=== PATIENT | female | born 1945 ===

== ENCOUNTER 2020-09-16 13:44 | Outpatient (REF) | payer MEDICAID, SELFPAY ==
[2020-09-16 14:43] LABS: C Reactive Protein 0.88 mg/dL (< or = 0.50)
[2020-09-16 16:04] LABS: Erythrocyte Sedimentation Rate 29 MM/HR (0-20)
== END 2020-09-16 13:45 | disposition home or self-care (01) ==
LOC: HO.LAB 13:44
PROVIDERS: PCP Internal Medicine; Visit Provider Psychiatry & Neurology Neurology
DX: G43.909 Migraine, unspecified, not intractable, without status migrainosus (principal)
CPT/HCPCS: 36415; 85652; 86140

== ENCOUNTER 2022-04-26 13:59 | Outpatient (REF) | payer MEDICAID, SELFPAY | END 2022-04-26 14:00 | disposition home or self-care (01) | LOC: HO.LAB 13:59 | PROVIDERS: PCP Internal Medicine; Visit Provider Nurse Practitioner Family | DX: N39.0 Urinary tract infection, site not specified (principal) | CPT/HCPCS: 51798; 87086; 87088; 87186; 99202 ==

== ENCOUNTER 2022-06-23 13:45 | Outpatient (REF) | payer MEDICAID, SELFPAY ==
--- NOTE | ~2022-06-23 | US_ITS ---
EXAMINATION: US RETROPERITONEAL LIMITED (RENAL ONLY) CLINICAL INFORMATION: Urinary tract infection, site not specified. COMPARISON: None available. TECHNIQUE: Real-time imaging of the kidneys. FINDINGS: RIGHT KIDNEY: 11.5 x 4.5 x 5.3 cm (SAG x AP x TRV). The kidney is normal in size, contour, and echogenicity. Renal cortical thickness is normal. No renal calculi or hydronephrosis. At the upper pole, a 1.0 cm in maximal diameter anechoic, simple cyst is seen. LEFT KIDNEY: 11.4 x 3.9 x 3.9 cm (SAG x AP x TRV). The kidney is normal in size, contour, and echogenicity. Renal cortical thickness is normal. No calculi or focal parenchymal lesions. No hydronephrosis. BLADDER: Partially distended. Bilateral ureteral jets are demonstrated. Prevoid bladder volume is 39 mL. Postvoid bladder volume is not obtained. US/US renal BI IMPRESSION: A 1.0 cm benign, simple right renal cyst is seen. This is a benign finding, for which no imaging follow-up is recommended. The examination is otherwise unremarkable.
== END 2022-06-23 13:46 | disposition home or self-care (01) ==
LOC: HO.US 13:45
PROVIDERS: PCP Internal Medicine; Visit Provider Nurse Practitioner Family
DX: N39.0 Urinary tract infection, site not specified (principal)
CPT/HCPCS: 76775

== ENCOUNTER 2022-07-14 12:56 | Outpatient (REF) | payer MEDICAID, SELFPAY ==
--- NOTE | ~2022-07-14 | US_ITS ---
EXAMINATION: US PELVIS LIMITED (BLADDER) CLINICAL INFORMATION: Recurrent UTI. COMPARISON: Ultrasound renal 06/23/2022. TECHNIQUE: Real-time imaging of the bladder. FINDINGS: BLADDER: Well distended and normal. Bilateral ureteral jets are demonstrated. Prevoid bladder volume is 227 mL. Postvoid bladder volume is 16.5 mL. US/US bladder IMPRESSION: Unremarkable sonographic appearance of the bladder.
== END 2022-07-14 12:57 | disposition home or self-care (01) ==
LOC: HO.US 12:56
PROVIDERS: PCP Internal Medicine; Visit Provider Nurse Practitioner Family
DX: N39.0 Urinary tract infection, site not specified (principal)
CPT/HCPCS: 76857

== ENCOUNTER 2022-12-01 13:03 | Outpatient (AMB) | payer MEDICAID, SELFPAY ==
--- NOTE | 2022-12-01 13:06 | MHC.OFFVIS ---
Intake Intake Visit Reasons: 2m/US/PVR(SET) Intake Note: Patient is present for follow up recurrent uti/ultrasound (imaging 06/23 & 07/14) Urology Medications: Estrace Cream Blood Thinner: Apixaban (eliquis) PVR: 73ml's Speech Language Pathologist Prn Required: Yes Accompanied by: Daughter Allergies No Known Allergies Allergy (Verified 12/01/22 13:19) Medication List - Last Reviewed 12/01/22 by Gala Earl apixaban (Eliquis) 5 mg PO BID cholecalciferol (vitamin D3) (Vitamin D3) 50 mcg PO DAILY clotrimazole-betamethasone 1-0.05 % appl topical BID diltiazem HCl 120 mg PO DAILY docusate sodium 100 mg PO BID estradiol 0.01%(0.1mg/gram) (Estrace) 1 g vaginal 3XW glipizide 10 mg PO BID loratadine 10 mg PO DAILY lorazepam 1 mg PO BID PRN metformin 500 mg PO BID metoprolol tartrate 25 mg PO BID nitrofurantoin monohyd/m-cryst 100 mg (Macrobid) 100 mg PO BID 7 days omeprazole 20 mg PO BID oxycodone 5 mg PO Q6H PRN sertraline 50 mg PO DAILY simvastatin 20 mg PO BEDTIME HPI HPI Comments History of Present Illness Details Lucina is a pleasant 77-year-old Italian-speaking female patient of Dr. Martell who was accompanied by her daughter and grandson at today's visit. She has a past medical history of hypercholesteremia, arthritis, anxiety, hypertension, recurrent urinary tract infections, and diabetes. She presents to the office today for a follow up. Of note, patient was previously seen approximately 7 months ago as a new patient for recurrent UTI's at which time a retroperitoneal ultrasound was ordered for further assessment evaluation, patient was started on estrogen cream, and treated for an active infection at the time. Plan of care for follow-up was 1-2 months however patient reports having had to reschedule appointments. She reports experiencing UTI like symptoms 2-3 times since her last office visit here however followed up with her PCP and underwent treatment for urinary tract infection. In office urinalysis results reviewed with the patient today. Negative leukocytes positive nitrates. When asked patient reports foul-smelling urine however she denies urinary urgency, urinary frequency, incontinence, nocturia, hematuria, dysuria, changes to urinary stream, flank pain, fever, and or chills. She is happy with her current voiding parameters. Right kidney with no calculi, and or hydronephrosis. At the upper pole a 1.0 cm in maximal diameter anechoic, simple cyst is seen which no follow-up imaging recommended per radiology report. Left kidney with no hydronephrosis, calculi, and or lesions. The bladder is well distended and normal. Bilateral ureteral jets are demonstrated. Pre void bladder volume is approximately 230 mL. Postvoid bladder volume is approximately 15 mL. Discussed at length importance of drinking plenty of water daily. Patient reports issues with constipation discussed at length constipation can increase urinary tract infections. When asked patient reports compliance with Estrace cream 3 times per week. Discussed sending urine out today for further microgen testing. PVR today 73 mL. Discussed at length potential causes and effects of incomplete bladder emptying. She otherwise offers no other issues or concerns at this time. [facility] Medical History High cholesterol Arthritis Anxiety Hypertension Recurrent urinary tract infection Diabetes mellitus Surgical History History of removal of cyst History of appendectomy History of hysterectomy History of Review of Systems Const Reports no additional complaints Eyes Reports no additional complaints ENT Reports no additional complaints Card Reports as per HPI Resp Reports no additional complaints GI Reports constipation Reports as per HPI Musc Reports as per HPI Neuro Reports no additional complaints Psych Reports no additional complaints Endo Details: patient reports being diabetic Reports as per HPI Physical Exam Const General: cooperative, healthy appearing, comfortable, no acute distress, well developed, alert and awake Orientation/consciousness: patient oriented x3 Limitations: no limitations HEENT Head: Yes normal to inspection, Yes normocephalic and Yes atraumatic Ears: hearing grossly normal bilaterally Eyes General: appearance normal, both eyes and all related structures Neck Neck: Yes normal visual inspection and Yes trachea midline Chest Chest palpation & inspection: normal inspection of the chest Resp Effort & Inspection: normal respiratory effort and able to speak in complete sentences Cardio Rate: regular rate GI Inspection: Yes normal to inspection General: Yes no CVA tenderness Back/Spine/Pelvis Back: no CVA tenderness Skin General skin exam: no rashes or lesions noted Neuro General: patient oriented x3 Extrem General: Yes normal to inspection Psych Appearance: grossly normal and well kempt Mental Status: mental status grossly normal Speech and movement: Normal speech and movement present and Clear speech present Affect: normal affect Attitude: cooperative Thought process: Normal thought process present Thought content: Normal thought content present Insight: Good insight present (Psych) Judgement: Good judgement present (Psych) Office Procedures Post Void Residual Post Residual Void Post Void Residual (PVR): 73 [id number] Void Residual by ultrasound Results AMB Urinalysis, Automated UA Leukoctes 0 Lico/uL Last Edit by [email or web address] on 12/01/22 13:30 UA Nitrite Positive Last Edit by [email or web address] on 12/01/22 13:30 UA Urobilinogen 0.2 mg/dL Last Edit by [email or web address] on 12/01/22 13:30 UA Protein 15 mg/dL Last Edit by [email or web address] on 12/01/22 13:30 UA pH 5.5 Last Edit by [email or web address] on 12/01/22 13:30 UA Blood 200 Juancho/uL Last Edit by [email or web address] on 12/01/22 13:30 UA Specific [place] 1.030 Last Edit by [email or web address] on 12/01/22 13:30 UA Ketone Negative Last Edit by [email or web address] on 12/01/22 13:30 UA Bilirubin 1 mg/dL Last Edit by [email or web address] on 12/01/22 13:30 UA Glucose 0 mg/dL Last Edit by [email or web address] on 12/01/22 13:30 Results Reviewed Results Reviewed: Laboratory Last Values Urine pH (Auto) 5.5 12/01/22 13:12 Specific [place] (Auto) 1.030 12/01/22 13:12 Urine Protein (Auto) 15 mg/dL 12/01/22 13:12 Glucose (UA)(Auto) 0 mg/dL 12/01/22 13:12 Urine Ketones (Auto) Negative 12/01/22 13:12 Urine Blood (Auto) 200 [place]ancho/uL 12/01/22 13:12 Urine Nitrite (Auto) Positive 12/01/22 13:12 Urine Bilirubin (Auto) 1 mg/dL 12/01/22 13:12 Urine Urobilinogen (Auto) 0.2 mg/dL 12/01/22 13:12 Leukocyte Esterase (Auto) 0 Lico/uL 12/01/22 13:12 Date of Service: 06/23/22 EXAMINATION: US RETROPERITONEAL LIMITED (RENAL ONLY) FINDINGS: RIGHT KIDNEY: 11.5 x 4.5 x 5.3 cm (SAG x AP x TRV). The kidney is normal in size, contour, and echogenicity. Renal cortical thickness is normal. No renal calculi or hydronephrosis. At the upper pole, a 1.0 cm in maximal diameter anechoic, simple cyst is seen. LEFT KIDNEY: 11.4 x 3.9 x 3.9 cm (SAG x AP x TRV). The kidney is normal in size, contour, and echogenicity. Renal cortical thickness is normal. No calculi or focal parenchymal lesions. No hydronephrosis. BLADDER: Partially distended. Bilateral ureteral jets are demonstrated. Prevoid bladder volume is 39 mL. Postvoid bladder volume is not obtained. IMPRESSION: A 1.0 cm benign, simple right renal cyst is seen. This is a benign finding, for which no imaging follow-up is recommended. The examination is otherwise unremarkable. Date of Service: 07/14/22 EXAMINATION: US PELVIS LIMITED (BLADDER) FINDINGS: BLADDER: Well distended and normal. Bilateral ureteral jets are demonstrated. Prevoid bladder volume is 227 mL. Postvoid bladder volume is 16.5 mL. IMPRESSION: Unremarkable sonographic appearance of the bladder. Assessment & Plan Assessment & Plan (1) Complicated urinary tract infection: Code(s): N39.0 - Urinary tract infection, site not specified (2) Recurrent UTI: Code(s): N39.0 - Urinary tract infection, site not specified (3) Foul smelling urine: Code(s): R82.90 - Unspecified abnormal findings in urine Plan In office urinalysis results reviewed with the patient today; will send urine for microgen testing Start Macrobid as discussed and prescribed. Discussed at length importance of managing diabetes for improvement in urinary symptoms as well as overall health and well-being. Discussed UTI prevention with D mannose supplement, vitamin-C, increasing fluid intake, behavioral therapy with timed voiding, perineal hygiene and postcoital voiding, and management of constipation with stool softeners and increased fiber intake. Recent retroperitoneal ultrasound results reviewed with the patient today; as noted above Follow-up in 1-2 months; or sooner with any issues, concerns, and or questions. Orders: Orders AMB Urinalysis Automated Today Z13.9 - Encounter for screening, unspecified AMB Post Void Residual by ultrasound Today N39.0 - Urinary tract infection, site not specified Medications: Changed From nitrofurantoin monohyd/m-cryst 100 mg (Macrobid) must administer with a meal/food 100 mg PO BID 7 days 14 caps 0RF UTI To nitrofurantoin monohyd/m-cryst 100 mg (Macrobid) must administer with a meal/food 100 mg PO BID 14 days 28 caps 0RF UTI Coding Level of Care Code Est Pt Level 4 (42859) Diagnoses Complicated urinary tract infection N39.0 Recurrent UTI N39.0 Foul smelling urine R82.90 CPT Codes Post Residual Void - PVR CPT Code: 68915-Hloa Void Residual by ultrasound ([id number])
== END 2022-12-01 13:48 | disposition home or self-care (01) ==
PROVIDERS: PCP Internal Medicine; Visit Provider Nurse Practitioner Family
DX: N39.0 Urinary tract infection, site not specified (principal); R82.90 Unspecified abnormal findings in urine
CPT/HCPCS: 99214

== ENCOUNTER → 2022-12-01 13:03 | Outpatient (BNVA) | payer MEDICAID, SELFPAY | PROVIDERS: PCP Internal Medicine; Visit Provider Nurse Practitioner Family | DX: N39.0 Urinary tract infection, site not specified (principal); R82.90 Unspecified abnormal findings in urine | CPT/HCPCS: 51798; 81003; 99212 ==

== ENCOUNTER 2023-02-16 12:43 | Outpatient (REF) | payer MEDICAID, SELFPAY ==
[2023-02-16 16:45] LABS: Urine Cytology See Pathology rpt
== END 2023-02-16 12:44 | disposition home or self-care (01) ==
LOC: HO.LNP 12:43
PROVIDERS: PCP Internal Medicine; Visit Provider Nurse Practitioner Family
DX: N39.0 Urinary tract infection, site not specified (principal); Z79.899 Other long term (current) drug therapy
CPT/HCPCS: 51798; 81003; 88112; 99212

== ENCOUNTER 2023-02-16 12:43 | Outpatient (AMB) | payer MEDICAID, SELFPAY ==
--- NOTE | 2023-02-16 13:05 | A.OFFVIS_ITS ---
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: Yes Accompanied by: Daughter Allergies No Known Allergies Allergy (Verified 02/16/23 13:56) Medication List - Last Reconciled 02/16/23 by ROLANDO Henderson- apixaban (Eliquis) 5 mg PO BID cholecalciferol (vitamin D3) (Vitamin D3) 50 mcg PO DAILY clotrimazole-betamethasone 1-0.05 % appl topical BID diltiazem HCl 120 mg PO DAILY docusate sodium 100 mg PO BID estradiol 0.01%(0.1mg/gram) (Estrace) 1 g vaginal 3XW fluticasone propionate 50 mcg/actuation 1 spray intranasal DAILY glipizide 10 mg PO BID loratadine 10 mg PO DAILY lorazepam 1 mg PO BID PRN metformin 500 mg PO BID metoprolol tartrate 25 mg PO BID nitrofurantoin monohyd/m-cryst 100 mg (Macrobid) 100 mg PO BID 14 days omeprazole 20 mg PO BID oxycodone 5 mg PO Q6H PRN sertraline 50 mg PO DAILY simvastatin 20 mg PO BEDTIME HPI HPI Comments History of Present Illness Details Lucina is a pleasant 77-year-old Swedish-speaking female patient of Dr. Martell who was accompanied by her daughter at today's visit. She has a past medical history of hypercholesteremia, arthritis, anxiety, hypertension, recurrent urinary tract infections, and diabetes. She presents to the office today for a follow up. Of note, patient was previously seen approximately 2 months ago at which time her urine was sent for further microgen testing. Microgen noted Kiebsiella Pneumoniae at which time patient was treated with Macr obid 100 mg b.i.d. x2 weeks. In discussion with the patient today she reports feeling lower urinary tract symptoms have since significantly improved. She does however continue with microscopic hematuria. Previous workup has included a renal bladder ultrasound noting right kidney with no calculi, and or hydronephrosis. At the upper pole a 1.0 cm in maximal diameter anechoic, simple cyst is seen which no follow-up imaging recommended per radiology report. Left kidney with no hydronephrosis, calculi, and or lesions. The bladder is well distended and normal. Bilateral ureteral jets are demonstrated. Pre void bladder volume is approximately 230 mL. Postvoid bladder volume is approximately 15 mL. Discussed at length importance of drinking plenty of water daily. Patient reports issues with constipation discussed at length constipation can increase urinary tract infections. When asked patient reports compliance with Estrace cream 3 times per week. When asked she denies urinary urgency, urinary frequency, incontinence, nocturia, hematuria, dysuria, changes to urinary stream, flank pain, fever, and or chills. She is happy with her current voiding parameters. She reports following up with Nephrology regarding her proteinuria as well as management of kidney disease. She also discusses following up with Gastroenterology for her abdominal bloating and constipation. She otherwise offers no issues or concerns at this time. COUNT INCLUDES [facility] Medical History High cholesterol Arthritis Anxiety Hypertension Recurrent urinary tract infection Diabetes mellitus Surgical History History of removal of cyst History of appendectomy History of hysterectomy History of Review of Systems Const Reports no additional complaints Eyes Reports no additional complaints ENT Reports no additional complaints Card Reports as per HPI Resp Reports no additional complaints GI Reports constipation Reports as per HPI Musc Reports as per HPI Neuro Reports no additional complaints Psych Reports no additional complaints Endo Details: patient reports being diabetic Reports as per HPI Physical Exam Const General: cooperative, healthy appearing, comfortable, no acute distress, well developed, alert and awake Orientation/consciousness: patient oriented x3 Limitations: no limitations HEENT Head: Yes normal to inspection, Yes normocephalic and Yes atraumatic Ears: hearing grossly normal bilaterally Eyes General: appearance normal, both eyes and all related structures Neck Neck: Yes normal visual inspection and Yes trachea midline Chest Chest palpation & inspection: normal inspection of the chest Resp Effort & Inspection: normal respiratory effort and able to speak in complete sentences Cardio Rate: regular rate GI Inspection: Yes normal to inspection General: Yes no CVA tenderness Back/Spine/Pelvis Back: no CVA tenderness Skin General skin exam: no rashes or lesions noted Neuro General: patient oriented x3 Extrem General: Yes normal to inspection Psych Appearance: grossly normal and well kempt Mental Status: mental status grossly normal Speech and movement: Normal speech and movement present and Clear speech present Affect: normal affect Attitude: cooperative Thought process: Normal thought process present Thought content: Normal thought content present Insight: Good insight present (Psych) Judgement: Good judgement present (Psych) Office Procedures Post Void Residual Post Residual Void Post Void Residual (PVR): 37 [id number] Void Residual by ultrasound Results AMB Urinalysis, Automated UA Leukoctes 70 Lico/uL Last Edit by [employer] on 02/16/23 13:32 UA Nitrite Negative Last Edit by [employer] on 02/16/23 13:32 UA Urobilinogen 0.2 mg/dL Last Edit by [employer] on 02/16/23 13:32 UA Protein 30 mg/dL Last Edit by [employer] on 02/16/23 13:32 UA pH 5.5 Last Edit by [employer] on 02/16/23 13:32 UA Blood 200 Juancho/uL Last Edit by [employer] on 02/16/23 13:32 UA Specific [place] 1.030 Last Edit by [employer] on 02/16/23 13:32 UA Ketone Positive Last Edit by [employer] on 02/16/23 13:32 UA Bilirubin 1 mg/dL Last Edit by [employer] on 02/16/23 13:32 UA Glucose 0 mg/dL Last Edit by [employer] on 02/16/23 13:32 Results Reviewed Results Reviewed: Laboratory Last Values Urine pH (Auto) 5.5 02/16/23 13:11 Specific [place] (Auto) 1.030 02/16/23 13:11 Urine Protein (Auto) 30 mg/dL 02/16/23 13:11 Glucose (UA)(Auto) 0 mg/dL 02/16/23 13:11 Urine Ketones (Auto) Positive 02/16/23 13:11 Urine Blood (Auto) 200 Juancho/uL 02/16/23 13:11 Urine Nitrite (Auto) Negative 02/16/23 13:11 Urine Bilirubin (Auto) 1 mg/dL 02/16/23 13:11 Urine Urobilinogen (Auto) 0.2 mg/dL 02/16/23 13:11 Leukocyte Esterase (Auto) 70 Lico/uL 02/16/23 13:11 Assessment & Plan Assessment & Plan (1) Recurrent UTI: Code(s): N39.0 - Urinary tract infection, site not specified Plan In office urinalysis results reviewed with the patient today; as noted above will send for urine cytology. Patient denies any bothersome urinary issues or concerns at this time. Continue Estrace cream as prescribed. Discussed at length UTI prevention with D mannose supplement, vitamin-C, increasing fluid intake, behavioral therapy with timed voiding, perineal hygiene and postcoital voiding, and management of constipation with stool softeners and increased fiber intake. Discussed at length potential causes of microscopic hematuria as well as further microscopic hematuria workup with in office cystoscopy versus surveillance monitoring Continue to follow up with GI and Nephrology as planned Will continue with surveillance monitoring at this time and will reassess in 3 months Follow-up in 3 months with PVR; or sooner with any issues, concerns, and or questions. Orders: Orders AMB Urinalysis Automated Today Z13.9 - Encounter for screening, unspecified AMB Post Void Residual by ultrasound Today N39.0 - Urinary tract infection, site not specified Urine Cytology Today N39.0 - Urinary tract infection, site not specified Patient Instructions: The patient had an opportunity to ask questions regarding the treatment plan. All questions were answered. Physical exam, labs, and imaging were discussed and reviewed in detail. As well as risks, benefits, and discussion of treatment choices. No major barriers to understanding were identified. The patient expressed understanding and agreement with the above treatment plan. The patient was made aware they should contact our office by phone for worsening of their current condition, the appearance of new symptoms, or with any questions or concerns. Compliance is encouraged with any medications and follow up testing that is ordered. It is a privilege to be allowed the opportunity to participate in? your urological care.? Again, if you have any questions or concerns If you have any questions or concerns please do not hesitate to contact me. The office is [phone]. This note is constructed using voice recognition software. While every effort has been made to ensure accuracy auto body builder apprentice errors may have been included. Yours sincerely, CLIFF Henderson Coding Level of Care Code Est Pt Level 3 (71401) Diagnoses Recurrent UTI N39.0 CPT Codes Post Residual Void - PVR CPT Code: 23901-Rcot Void Residual by ultrasound ([id number])
== END 2023-02-16 13:54 | disposition home or self-care (01) ==
PROVIDERS: PCP Internal Medicine; Visit Provider Nurse Practitioner Family
DX: N39.0 Urinary tract infection, site not specified (principal)
CPT/HCPCS: 99213

== ENCOUNTER 2023-03-04 11:45 | Outpatient (REF) | payer MEDICAID, SELFPAY ==
[2023-03-04 13:43] LABS: Appearance Urine Cloudy; Color Urine Yellow; Glucose Urine UA Negative (Negative); Leukocyte Esterase Urine Small (1+) (Negative); Nitrite Urine Positive (Negative); PH 5.5 (5.0-9.0); UMIC TRIGGER UA YES; Urine Blood Moderate (2+) (Negative); Urine Ketones Negative (Negative); Urine Protein Negative (Neg-Trace)
[2023-03-04 13:49] LABS: Bacteria Urine 4+ (None Seen); Hyaline Casts Urine 0-2 /LPF (0-2); WBC Urine 21-50 /HPF (0-5)
== END 2023-03-04 11:46 | disposition home or self-care (01) ==
LOC: HO.HMGCLNP 11:45
PROVIDERS: PCP Internal Medicine; Visit Provider Nurse Practitioner Family
DX: N39.0 Urinary tract infection, site not specified (principal)
CPT/HCPCS: 81001; 87086; 87088; 87186

== ENCOUNTER 2023-06-28 14:52 | Outpatient (AMB) | payer MEDICAID, SELFPAY ==
--- NOTE | 2023-06-28 15:24 | A.OFFVIS_ITS ---
Intake Intake Visit Reasons: 3m/PVR Intake Note: Patient is present for follow up recurrent uti Urology Medications: Estrace Cream Blood Thinner: Apixaban (eliquis) PVR: 54ml's Accompanied by: Daughter Allergies No Known Allergies Allergy (Verified 06/28/23 15:48) Medication List - Last Reconciled 06/28/23 by ASCENCION HendersonP- apixaban (Eliquis) 5 mg PO BID cholecalciferol (vitamin D3) (Vitamin D3) 50 mcg PO DAILY clotrimazole-betamethasone 1-0.05 % appl topical BID diltiazem HCl CD 120 mg PO DAILY docusate sodium 100 mg PO BID estradiol 0.01%(0.1mg/gram) (Estrace) 1 g vaginal 3XW fluticasone propionate 50 mcg/actuation 1 spray intranasal DAILY glipizide 10 mg PO BID loratadine 10 mg PO DAILY lorazepam 1 mg PO BID PRN metformin 500 mg PO BID metoprolol tartrate 25 mg PO BID omeprazole 20 mg PO BID oxycodone 5 mg PO Q6H PRN sertraline 50 mg PO DAILY simvastatin 20 mg PO BEDTIME HPI HPI Comments History of Present Illness Details Lucina is a pleasant 78-year-old Citizen Of [place]-speaking female patient of Dr. Martell who was accompanied by her daughter at today's visit. She has a past medical history of hypercholesteremia, arthritis, anxiety, hypertension, recurrent urinary tract infections, and diabetes. She presents to the office today for a follow up of her recurrent urinary tract infection. Recent retroperitoneal ultrasound results reviewed with the patient and her daughter today. Bilateral kidneys with no lesions, nephrolithiasis and or hydronephrosis. At the upper pole of the right kidney there is a 1 cm anechoic simple cyst seen which requires no additional imaging follow-up per radiology report. The bladder is partially distended. Bilateral ureteral jets are demonstrated. Patient with a history of recurrent UTIs [facility] 12/04 noted Kiebsiella Pneumoniae at which time patient was treated with Macrobid 100 mg b.i.d. x2 weeks. In discussion with the patient today she reports feeling lower urinary tract symptoms have since significantly improved. She does however continue with 3+ microscopic hematuria. However pH 5.0 discussed and stressed the importance of drinking plenty of water daily. PVR 54 mL. Patient reports issues with constipation discussed at length constipation can increase urinary tract infections. When asked patient reports compliance with Estrace cream 3 times per week. Urine cytology from last office visit reviewed 03/05-Negative for high-grade urothelial carcinoma. When asked she denies urinary urgency, urinary frequency, incontinence, nocturia, hematuria, dysuria, changes to urinary stream, flank pain, fever, and or chills. She is happy with her current voiding parameters. She reports following up with Nephrology regarding her proteinuria as well as management of kidney disease. She also discusses following up with Gastroenterology for her abdominal bloating, fullness, and constipation. She otherwise offers no issues or concerns at this time. [facility] Medical History High cholesterol Arthritis Anxiety Hypertension Recurrent urinary tract infection Diabetes mellitus Surgical History History of removal of cyst History of appendectomy History of hysterectomy History of Review of Systems Const Reports no additional complaints Eyes Reports no additional complaints ENT Reports no additional complaints Card Reports as per HPI Resp Reports no additional complaints GI Reports constipation Reports as per HPI Musc Reports as per HPI Neuro Reports no additional complaints Psych Reports no additional complaints Endo Details: patient reports being diabetic Reports as per HPI Physical Exam Const General: cooperative, healthy appearing, comfortable, no acute distress, well developed, alert and awake Orientation/consciousness: patient oriented x3 Limitations: no limitations HEENT Head: Yes normal to inspection, Yes normocephalic and Yes atraumatic Ears: hearing grossly normal bilaterally Eyes General: appearance normal, both eyes and all related structures Neck Neck: Yes normal visual inspection and Yes trachea midline Chest Chest palpation & inspection: normal inspection of the chest Resp Effort & Inspection: normal respiratory effort and able to speak in complete sentences Cardio Rate: regular rate GI Inspection: Yes normal to inspection General: Yes no CVA tenderness Back/Spine/Pelvis Back: no CVA tenderness Skin General skin exam: no rashes or lesions noted Neuro General: patient oriented x3 Extrem General: Yes normal to inspection Psych Appearance: grossly normal and well kempt Mental Status: mental status grossly normal Speech and movement: Normal speech and movement present and Clear speech present Affect: normal affect Attitude: cooperative Thought process: Normal thought process present Thought content: Normal thought content present Insight: Good insight present (Psych) Judgement: Good judgement present (Psych) Office Procedures Post Void Residual Post Residual Void Post Void Residual (PVR): 54 [id number]-[id number] Void Residual by ultrasound Results AMB Urinalysis, Automated UA Leukoctes 15 Lico/uL Last Edit by Gala Earl on 06/28/23 15:39 UA Nitrite Negative Last Edit by Gala Earl on 06/28/23 15:39 UA Urobilinogen 0.2 mg/dL Last Edit by Gala Earl on 06/28/23 15:39 UA Protein 30 mg/dL Last Edit by Gala Earl on 06/28/23 15:39 UA pH 5.0 Last Edit by Gala Earl on 06/28/23 15:39 UA Blood 200 Juancho/uL Last Edit by Gala Earl on 06/28/23 15:39 UA Specific [place] 1.030 Last Edit by Gala Earl on 06/28/23 15:39 UA Ketone Positive Last Edit by Gala Earl on 06/28/23 15:39 UA Bilirubin 2 mg/dL Last Edit by Gala Earl on 06/28/23 15:39 UA Glucose 0 mg/dL Last Edit by Gala Earl on 06/28/23 15:39 Results Reviewed Results Reviewed: Laboratory Last Values Urine pH (Auto) 5.0 06/28/23 15:37 Specific [place] (Auto) 1.030 06/28/23 15:37 Urine Protein (Auto) 30 mg/dL 06/28/23 15:37 Glucose (UA)(Auto) 0 mg/dL 06/28/23 15:37 Urine Ketones (Auto) Positive 06/28/23 15:37 Urine Blood (Auto) 200 Juancho/uL 06/28/23 15:37 Urine Nitrite (Auto) Negative 06/28/23 15:37 Urine Bilirubin (Auto) 2 mg/dL 06/28/23 15:37 Urine Urobilinogen (Auto) 0.2 mg/dL 06/28/23 15:37 Leukocyte Esterase (Auto) 15 Lico/uL 06/28/23 15:37 Date of Service: 06/23/22 EXAMINATION: US RETROPERITONEAL LIMITED (RENAL ONLY) FINDINGS: RIGHT KIDNEY: 11.5 x 4.5 x 5.3 cm (SAG x AP x TRV). The kidney is normal in size, contour, and echogenicity. Renal cortical thickness is normal. No renal calculi or hydronephrosis. At the upper pole, a 1.0 cm in maximal diameter anechoic, simple cyst is seen. LEFT KIDNEY: 11.4 x 3.9 x 3.9 cm (SAG x AP x TRV). The kidney is normal in size, contour, and echogenicity. Renal cortical thickness is normal. No calculi or focal parenchymal lesions. No hydronephrosis. BLADDER: Partially distended. Bilateral ureteral jets are demonstrated. Prevoid bladder volume is 39 mL. Postvoid bladder volume is not obtained. IMPRESSION: A 1.0 cm benign, simple right renal cyst is seen. This is a benign finding, for which no imaging follow-up is recommended. The examination is otherwise unremarkable. Date of Service: 07/14/22 EXAMINATION: US PELVIS LIMITED (BLADDER) BLADDER: Well distended and normal. Bilateral ureteral jets are demonstrated. Prevoid bladder volume is 227 mL. Postvoid bladder volume is 16.5 mL. IMPRESSION: Unremarkable sonographic appearance of the bladder. Assessment & Plan Assessment & Plan (1) Recurrent UTI: Code(s): N39.0 - Urinary tract infection, site not specified (2) Microscopic hematuria: Code(s): R31.29 - Other microscopic hematuria Plan In office urinalysis results reviewed with the patient today; as noted above. PVR 54 mL Most recent cytology results from last office visit reviewed with the patient to day; as noted above. Recent retroperitoneal ultrasound results reviewed with the patient today; as noted above. Continue Estrace cream as discussed and prescribed. Patient currently denies any UTI like symptoms Discussed at length potential causes of microscopic hematuria Discussed and stressed the importance of drinking water daily Discussed possible near future in office cystoscopy if symptoms arise and patient continues with microscopic hematuria. Will continue with surveillance monitoring of microscopic hematuria at this time. Discussed UTI prevention with D mannose supplement, vitamin-C, increasing fluid intake, behavioral therapy with timed voiding, perineal hygiene and postcoital voiding, and management of constipation with stool softeners and increased fiber intake. Follow-up in 3 months with PVR; or sooner with any issues, concerns, and or questions. Orders: Orders AMB Urinalysis Automated Today Z13.9 - Encounter for screening, unspecified AMB Post Void Residual by ultrasound Today N39.0 - Urinary tract infection, site not specified Patient Instructions: The patient had an opportunity to ask questions regarding the treatment plan. All questions were answered. Physical exam, labs, and imaging were discussed and reviewed in detail. As well as risks, benefits, and discussion of treatment choices. No major barriers to understanding were identified. The patient expressed understanding and agreement with the above treatment plan. The patient was made aware they should contact our office by phone for worsening of their current condition, the appearance of new symptoms, or with any questions or concerns. Compliance is encouraged with any medications and follow up testing that is ordered. It is a privilege to be allowed the opportunity to participate in? your urological care.? Again, if you have any questions or concerns If you have any questions or concerns please do not hesitate to contact me. The office is [phone]. This note is constructed using voice recognition software. While every effort has been made to ensure accuracy suction worker errors may have been included. Yours sincerely, CLIFF Henderson Coding Level of Care Code Est Pt Level 3 (83447) Diagnoses Recurrent UTI N39.0 Microscopic hematuria R31.29 CPT Codes Post Residual Void - PVR CPT Code: 67788-Tfat Void Residual by ultrasound ([id number])
== END 2023-06-28 15:44 | disposition home or self-care (01) ==
PROVIDERS: PCP Internal Medicine; Visit Provider Nurse Practitioner Family
DX: N39.0 Urinary tract infection, site not specified (principal); R31.29 Other microscopic hematuria
CPT/HCPCS: 99213

== ENCOUNTER → 2023-06-28 14:52 | Outpatient (BNVA) | payer MEDICAID, SELFPAY | PROVIDERS: PCP Internal Medicine; Visit Provider Nurse Practitioner Family | DX: N39.0 Urinary tract infection, site not specified (principal); R31.29 Other microscopic hematuria | CPT/HCPCS: 51798; 81003; 99212 ==

== ENCOUNTER 2023-09-26 14:16 | Outpatient (AMB) | payer MEDICAID, SELFPAY ==
--- NOTE | 2023-09-26 14:24 | A.OFFVIS_ITS ---
Intake Visit Reasons: 3m/PVR Intake Note: Patient presents today for follow up on: Recurrent UTI and Microscopic Hematuria Urology Medications: Estrace Cream Blood Thinner: Apixaban (eliquis) PVR: 26ml's Bagging Machine Operator Required: Yes Bagging Machine Operator Services: Bagging Machine Operator Present Bagging Machine Operator Name: [id number] Accompanied by: Daughter Allergies No Known Allergies Allergy (Verified 09/26/23 14:52) Medication List - Last Reconciled 09/26/23 by ROLANDO Henderson- apixaban (Eliquis) 5 mg PO BID cholecalciferol (vitamin D3) (Vitamin D3) 50 mcg PO DAILY clotrimazole-betamethasone 1-0.05 % appl topical BID diltiazem HCl CD 120 mg PO DAILY docusate sodium 100 mg PO BID estradiol 0.01%(0.1mg/gram) (Estrace) 1 g vaginal 3XW fluticasone propionate 50 mcg/actuation 1 spray intranasal DAILY glipizide 10 mg PO BID loratadine 10 mg PO DAILY lorazepam 1 mg PO BID PRN metformin 500 mg PO BID metoprolol tartrate 25 mg PO BID omeprazole 20 mg PO BID oxycodone 5 mg PO Q6H PRN sertraline 50 mg PO DAILY simvastatin 20 mg PO BEDTIME HPI Comments Details: Lucina is a pleasant 78-year-old [place]-speaking female patient of Dr. Martell who was accompanied by her daughter at today's visit. She has a past medical history of hypercholesteremia, arthritis, anxiety, hypertension, recurrent urinary tract infections, and diabetes. She presents to the office today for a follow up of her recurrent urinary tract infection. In discussion with the patient today she reports to be doing and feeling well. She reports since her last office visit here 3 months ago she has had no bothersome urinary issues or concerns. She reports compliance with Estrace cream as prescribed. In office urinalysis results reviewed with the patient today. PVR 26 mL. She discusses noting increase in her water consumption and feels this has been extremely helpful. Previous workup has included a retroperitoneal ultrasound noting bilateral kidneys with no lesions, nephrolithiasis and or hydronephrosis. At the upper pole of the right kidney there is a 1 cm anechoic simple cyst seen which requires no additional imaging follow-up per radiology report. The bladder is partially distended. Bilateral ureteral jets are demonstrated. Patient with a history of recurrent UTIs [facility] 12/04 noted Kiebsiella Pneumoniae at which time patient was treated with Macrobid 100 mg b.i.d. x2 weeks. She does continue with 2+ microscopic hematuria however urine cytology 03/05 Negative for high-grade urothelial carcinoma. When asked she denies urinary urgency, urinary frequency, incontinence, nocturia, hematuria, dysuria, changes to urinary stream, flank pain, fever, and or chills. She is happy with her current voiding parameters. She reports following up with Nephrology regarding her proteinuria as well as management of kidney disease. She also discusses following up with Gastroenterology for her abdominal bloating, fullness, and constipation. She otherwise offers no issues or concerns at this time. [facility] Medical History High cholesterol Arthritis Anxiety Hypertension Recurrent urinary tract infection Diabetes mellitus Surgical History History of removal of cyst History of appendectomy History of hysterectomy History of Review of Systems Const Reports no additional complaints Eyes Reports no additional complaints ENT Reports no additional complaints Card Reports as per HPI Resp Reports no additional complaints GI Reports constipation Reports as per HPI Musc Reports as per HPI Neuro Reports no additional complaints Psych Reports no additional complaints Endo Details: patient reports being diabetic Reports as per HPI Physical Exam Const General: cooperative, healthy appearing, comfortable, no acute distress, well developed, alert and awake Orientation/consciousness: patient oriented x3 Limitations: no limitations HEENT Head: Yes normal to inspection, Yes normocephalic and Yes atraumatic Ears: hearing grossly normal bilaterally Eyes General: appearance normal, both eyes and all related structures Neck Neck: Yes normal visual inspection and Yes trachea midline Chest Chest palpation & inspection: normal inspection of the chest Resp Effort & Inspection: normal respiratory effort and able to speak in complete sentences Cardio Rate: regular rate GI Inspection: Yes normal to inspection General: Yes no CVA tenderness Back/Spine/Pelvis Back: no CVA tenderness Skin General skin exam: no rashes or lesions noted Neuro General: patient oriented x3 Extrem General: Yes normal to inspection Psych Appearance: grossly normal and well kempt Mental Status: mental status grossly normal Speech and movement: Normal speech and movement present and Clear speech present Affect: normal affect Attitude: cooperative Thought process: Normal thought process present Thought content: Normal thought content present Insight: Fair insight present (Psych) Judgement: Fair judgement present (Psych) Results AMB Urinalysis, Automated UA Leukoctes 0 Lico/uL Last Edit by Gala Earl on 09/26/23 14:48 UA Nitrite Negative Last Edit by [employer]mona Earl on 09/26/23 14:48 UA Urobilinogen 0.2 mg/dL Last Edit by [employer] on 09/26/23 14:48 UA Protein 15 mg/dL Last Edit by [employer] on 09/26/23 14:48 UA pH 6.0 Last Edit by [employer] on 09/26/23 14:48 UA Blood 80 Juancho/uL Last Edit by [employer] on 09/26/23 14:48 UA Specific [place] 1.015 Last Edit by [employer] on 09/26/23 14:48 UA Ketone Negative Last Edit by [employer] on 09/26/23 14:48 UA Bilirubin 0 mg/dL Last Edit by [employer] on 09/26/23 14:48 UA Glucose 0 mg/dL Last Edit by [employer] on 09/26/23 14:48 Results Reviewed Results Reviewed: Laboratory Last Values Urine pH (Auto) 6.0 09/26/23 14:45 Specific [place] (Auto) 1.015 09/26/23 14:45 Urine Protein (Auto) 15 mg/dL 09/26/23 14:45 Glucose (UA)(Auto) 0 mg/dL 09/26/23 14:45 Urine Ketones (Auto) Negative 09/26/23 14:45 Urine Blood (Auto) 80 Juancho/uL 09/26/23 14:45 Urine Nitrite (Auto) Negative 09/26/23 14:45 Urine Bilirubin (Auto) 0 mg/dL 09/26/23 14:45 Urine Urobilinogen (Auto) 0.2 mg/dL 09/26/23 14:45 Leukocyte Esterase (Auto) 0 Lico/uL 09/26/23 14:45 Assessment & Plan Assessment & Plan (1) Recurrent UTI: Code(s): N39.0 - Urinary tract infection, site not specified Category: Medical (2) Microscopic hematuria: Code(s): R31.29 - Other microscopic hematuria Category: Medical Plan In office urinalysis results reviewed with the patient today; as noted above. PVR 26 mLs Continue Estrace cream as discussed and prescribed; refill provided. Patient currently denies any UTI like symptoms. Discussed at length potential causes of microscopic hematuria. Discussed and stressed the importance of continuing to drink water daily. Discussed possible near future in office cystoscopy if symptoms arise and patient continues with microscopic hematuria. Discussed UTI prevention with D mannose supplement, vitamin-C, increasing fluid intake, behavioral therapy with timed voiding, perineal hygiene and postcoital voiding, and management of constipation with stool softeners and increased fiber intake. Follow-up in 6 months with PVR; or sooner with any issues, concerns, and or questions. Orders: Orders Urine Cytology Today R31.29 - Other microscopic hematuria AMB Urinalysis Automated Today Z13.9 - Encounter for screening, unspecified Medications: Refilled estradiol 0.01%(0.1mg/gram) (Estrace) 1 g vaginal 3XW 42.5 grams 6RF Patient Instructions: The patient had an opportunity to ask questions regarding the treatment plan. All questions were answered. Physical exam, labs, and imaging were discussed and reviewed in detail. As well as risks, benefits, and discussion of treatment choices. No major barriers to understanding were identified. The patient expressed understanding and agreement with the above treatment plan. The patient was made aware they should contact our office by phone for worsening of their current condition, the appearance of new symptoms, or with any questions or concerns. Compliance is encouraged with any medications and follow up testing that is ordered. It is a privilege to be allowed the opportunity to participate in? your urological care.? Again, if you have any questions or concerns If you have any questions or concerns please do not hesitate to contact me. The office is [phone]. This note is constructed using voice recognition software. While every effort has been made to ensure accuracy vice president of nursing errors may have been included. Yours sincerely, CLIFF Henderson Coding Level of Care Code Est Pt Level 3 (36971) Complex EM visit Add On G2211 Diagnoses Recurrent UTI N39.0 Microscopic hematuria R31.29
== END 2023-09-26 14:52 | disposition home or self-care (01) ==
PROVIDERS: PCP Internal Medicine; Visit Provider Nurse Practitioner Family
DX: N39.0 Urinary tract infection, site not specified (principal); R31.29 Other microscopic hematuria; Z13.9 Encounter for screening, unspecified
CPT/HCPCS: 99213

== ENCOUNTER 2023-09-26 14:16 | Outpatient (REF) | payer MEDICAID, SELFPAY ==
[2023-09-26 17:14] LABS: Urine Cytology See Pathology rpt
== END 2023-09-26 14:17 | disposition home or self-care (01) ==
LOC: HO.LNP 14:16
PROVIDERS: PCP Internal Medicine; Visit Provider Nurse Practitioner Family
DX: N39.0 Urinary tract infection, site not specified (principal); R31.29 Other microscopic hematuria
CPT/HCPCS: 81003; 88112; 99212